=== PATIENT | female | born 1970 | race Caucasian/White ===

== ENCOUNTER 2020-09-12 12:29 | Emergency (ER) | payer BC, OTHER ==
[2020-09-12] MEDS ORDERED: DEXAMETHASONE 10 MG/ML VIAL PO STA (13:28)
[2020-09-12] MEDS ORDERED: CHERRY SYRUP 10 ML UDC PO ONE (13:28)
[2020-09-12] MEDS ORDERED: KETOROLAC 60 MG/2 ML VIAL IM STA (13:29)
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
[2020-09-12 15:15] VITALS: BP 143/99
== END 2020-09-12 15:17 | disposition home or self-care (01) ==
LOC: ED 12:29
DX: S06.0X0A Concussion without loss of consciousness, initial encounter (principal); S16.1XXA Strain of muscle, fascia and tendon at neck level, initial encounter; S40.012A Contusion of left shoulder, initial encounter; S70.02XA Contusion of left hip, initial encounter; V43.52XA Car driver injured in collision with other type car in traffic accident, initial encounter; W22.11XA Striking against or struck by driver side automobile airbag, initial encounter; Y92.410 Unspecified street and highway as the place of occurrence of the external cause; Z88.6 Allergy status to analgesic agent
CPT/HCPCS: 70450; 71046; 72125; 73502; 96372; 99284; A9270

== ENCOUNTER 2022-01-29 14:09 | Outpatient (CLI) | payer BC ==
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
== END 2022-01-29 14:10 | disposition home or self-care (01) ==
LOC: LAB.N 14:09 → DI.N 14:10
PROVIDERS: ATTEND Chiropractor
DX: M47.812 Spondylosis without myelopathy or radiculopathy, cervical region (principal)